=== PATIENT | female | born 1970 | race Two or more races ===

== ENCOUNTER 2019-04-02 16:04 | Emergency (ER) | payer OTHER ==
[~2019-04-02] VITALS: Ht 170.2 cm; Wt 76.7 kg
[~2019-04-02 16:04] MED LIST: GLUCOTROL10 MG PO; GLUMETZA1000 MG PO
== END 2019-04-02 20:28 | disposition home or self-care (01) ==
LOC: ER 16:04
DX: T78.1XXA Other adverse food reactions, not elsewhere classified, initial encounter (principal); X58.XXXA Exposure to other specified factors, initial encounter